=== PATIENT | female | born 1970 ===

== ENCOUNTER 2021-06-10 23:34 | Observation (INO) ==
[2021-06-11] MEDS ORDERED: Ketorolac 30 MG/ML VIAL IVP ONE (00:04)
[2021-06-11 00:23] LABS: Basophils # 0.2 K/mcL (0.0-0.2); Basophils % 0.5 %; Eosinophils # 1.1 K/mcL (0.0-0.6); Eosinophils % 2.9 %; Hematocrit 47.4 % (35.3-44.9); Immature Granulocytes % 0.4 % (0-4); Lymphocytes # 23.9 K/mcL (0.6-4.6); Lymphocytes % 66.1 %; Mean Corpuscular HGB Conc 33.8 g/dL (31.6-35.5); Mean Corpuscular Hemoglobin 31.3 pg (28.0-33.3); Mean Corpuscular Volume 92.8 fL (83.0-100.0); Mean Platelet Volume 8.8 fL (9.4-12.4); Monocytes # 1.5 K/mcL (0.0-1.3); Neutrophils # 9.5 K/mcL (1.6-8.9); Platelet Count 527 K/mcL (140-400); Red Blood Count 5.11 M/mcL (3.82-4.97); Red Cell Distribution Width 12.7 % (11.5-14.5); Segmented Neutrophils % 26.1 %
[2021-06-11 00:29] LABS: White Blood Count 36.2 K/mcL (4.3-11.1)
[2021-06-11 00:33] LABS: Prothrombin Time 11.4 Seconds (9.4-12.1)
[2021-06-11 00:36] LABS: Activated Partial Thrombo Time 31.7 Seconds (26.0-36.0)
[2021-06-11 00:42] LABS: Alanine Aminotransferase 10 Units/L (7-52); Albumin 4.1 g/dL (3.5-5.7); Albumin/Globulin Ratio 1.2 (1.1-2.2); Alkaline Phosphatase 108 Units/L (34-104); Aspartate Amino Transferase 19 Units/L (13-39); BUN/Creatinine Ratio 13 (6-26); Bilirubin,Indirect 0.2 mg/dL (0.0-1.0); Bilirubin,Total 0.2 mg/dL (0.3-1.0); Blood Urea Nitrogen 10 mg/dL (6-20); Calcium 9.5 mg/dL (8.6-10.3); Carbon Dioxide 28 mEq/L (23-29); Chloride 100 mEq/L (98-107); Globulin 3.5 g/dL (2.4-3.5); Glucose 125 mg/dL (70-105); Lipase 33 Units/L (11-82); Osmolality,Calculated 285 (280-300); Potassium 3.8 mEq/L (3.5-5.1); Sodium 137 mEq/L (136-145); Total Protein 7.6 g/dL (6.4-8.9); Troponin I < 0.03 ng/mL (< 0.04); eGFR For African Americans > 60 (> 60); eGFR For Non-African Americans > 60 (> 60)
[2021-06-11] MEDS ORDERED: Isovue-370 500 ML BOTTLE IVP ONE (01:11)
[2021-06-11 01:34] LABS: Platelet Estimate Increased (Normal); Reactive Lymphocytes Present (Not Present)
[2021-06-11 01:39] LABS: Bilirubin,Urine Negative (Negative); Blood,Urine Negative (Negative); Clarity,Urine Clear (Clear); Color,Urine Light-Yellow (Yellow); Glucose,Urine (UA) Normal (Normal); Ketones,Urine Negative (Negative); Leukocyte Esterase,Urine Trace (Negative); Mucus,Urine Few per lpf (None-Few); Nitrite,Urine Negative (Negative); Protein,Urine Negative (Neg-Trace); RBC,Urine 0-3 per hpf (0-3); Specific Gravity,Urine 1.011 (1.010-1.025); Squamous Epithelial Cell,Urine Few per hpf (None-Few); Urobilinogen,Urine Normal (Normal)
[2021-06-11] MEDS ORDERED: cefTRIAXone 1,000 MG in 0.9 % Sodium Chloride Mini Bag 100 ML IVPB ONE (03:33)
[2021-06-11] MEDS ORDERED: Ondansetron 4 MG/2 ML VIAL IVP PRN (04:28)
[2021-06-11] MEDS ORDERED: Acetaminophen 325 MG TABLET PO PRN (04:28)
[2021-06-11] MEDS ORDERED: Naloxone 0.4 MG/ML INJ IVP PRN (04:28)
[2021-06-11] MEDS ORDERED: Melatonin 3 MG TABLET PO PRN (04:28)
[2021-06-11] MEDS: Azithromycin 500 MG in D5% in Water 250 ML IVPB SCH (05:38)
[2021-06-11 07:23] LABS: Adenovirus Not Detected (Not Detect); Bordetella Pertussis Not Detected (Not Detect); Chlamydophila pneumoniae Not Detected (Not Detect); Coronavirus 229E Not Detected (Not Detect); Coronavirus HKU1 Not Detected (Not Detect); Coronavirus NL63 Not Detected (Not Detect); Coronavirus OC43 Not Detected (Not Detect); Human Metapneumovirus Not Detected (Not Detect); Human Rhinovirus/Enterovirus Not Detected (Not Detect); Influenza A Subtype 2009 H1 Not Detected (Not Detect); Influenza B Not Detected (Not Detect); Mycoplasma pneumoniae Not Detected (Not Detect); Parainfluenza Virus 1 Not Detected (Not Detect); Parainfluenza Virus 2 Not Detected (Not Detect); Parainfluenza Virus 3 Not Detected (Not Detect); Parainfluenza Virus 4 Not Detected (Not Detect); Respiratory Syncytial Virus Not Detected (Not Detect); SARS-CoV-2 Not Detected (Not Detect)
[2021-06-11] MEDS: Ketorolac 30 MG/ML VIAL IVP PRN ×2 (11:51→20:33)
[2021-06-11] MEDS ORDERED: GuaiFENesin Liq 200 MG/10 ML UDC PO PRN (20:05)
[2021-06-11 23:12] VITALS: O2SAT 95
[2021-06-12] MEDS: Azithromycin 500 MG in D5% in Water 250 ML IVPB SCH (04:54)
[2021-06-12 07:08] VITALS: BP 154/91; PULSE 83; TEMP 97.8
[2021-06-12 07:19] LABS: Basophils # 0.2 K/mcL (0.0-0.2); Basophils % 0.5 %; Eosinophils # 1.2 K/mcL (0.0-0.6); Eosinophils % 3.8 %; Hemoglobin 14.7 g/dL (11.5-15.4); Immature Granulocytes % 0.3 % (0-4); Lymphocytes # 20.1 K/mcL (0.6-4.6); Lymphocytes % 62.9 %; Mean Corpuscular HGB Conc 33.4 g/dL (31.6-35.5); Mean Corpuscular Hemoglobin 30.9 pg (28.0-33.3); Mean Corpuscular Volume 92.6 fL (83.0-100.0); Mean Platelet Volume 8.9 fL (9.4-12.4); Monocytes # 1.4 K/mcL (0.0-1.3); Monocytes % 4.3 %; Nucleated Red Blood Cells 0.1 /100 WBC (0); Platelet Count 486 K/mcL (140-400); Red Blood Count 4.75 M/mcL (3.82-4.97); Segmented Neutrophils % 28.2 %
[2021-06-12 07:36] LABS: BUN/Creatinine Ratio 14 (6-26); Blood Urea Nitrogen 11 mg/dL (6-20); Calcium 9.3 mg/dL (8.6-10.3); Carbon Dioxide 27 mEq/L (23-29); Chloride 104 mEq/L (98-107); Glucose 66 mg/dL (70-105); Osmolality,Calculated 288 (280-300); Potassium 3.7 mEq/L (3.5-5.1); Sodium 140 mEq/L (136-145); eGFR For African Americans > 60 (> 60); eGFR For Non-African Americans > 60 (> 60)
[2021-06-12 08:01] LABS: Reactive Lymphocytes Present (Not Present)
[2021-06-12 08:17] LABS: Hepatitis B Surface Antigen Nonreactive (Nonreactive)
[2021-06-12 08:45] LABS: Hepatitis C Virus Antibody Nonreactive (Nonreactive)
== END 2021-06-12 10:08 | disposition home or self-care (01) ==
LOC: 3BNU 23:34 → EMEROOARM 23:34 → SUATTDRO 06-11 03:50 → 3BNU 06-11 04:12
PROVIDERS: ADMIT Internal Medicine; ATTEND Internal Medicine